=== PATIENT | male | born 1965 | race Caucasian/White ===

== ENCOUNTER 2017-11-06 09:02 | Emergency (ER) | payer MEDICAID ==
[2017-11-06] MEDS: KETOROLAC 30 MG/ML VIAL IM ONE (09:35)
[2017-11-06] MEDS: ORPHENADRINE CITRATE 60MG/2ML VIAL IM ONE (09:35)
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
--- NOTE | 2017-11-07 14:33 | RADIOLOGY REPORT ---
EXAM: LUMBAR SPINE HISTORY: BACK PAIN. TECHNIQUE: Frontal and lateral views of the lumbar spine were obtained. Comparison: None. FINDINGS: Five lumbar type vertebral bodies. There is an age indeterminate compression fracture deformity of L1. Approximately 20-30% loss of height anteriorly. End plate degenerative changes throughout the lumbar spine. Height and alignment is otherwise preserved. The sacroiliac joints are preserved. IMPRESSION: AGE INDETERMINATE COMPRESSION FRACTURE DEFORMITY OF L1. MULTILEVEL DEGENERATIVE CHANGE. JOB NUMBER: [id number] MTDD
== END 2017-11-06 10:26 | disposition home or self-care (01) ==
LOC: ER 09:02
DX: S30.0XXA Contusion of lower back and pelvis, initial encounter (principal); W01.0XXA Fall on same level from slipping, tripping and stumbling without subsequent striking against object, initial encounter; F17.210 Nicotine dependence, cigarettes, uncomplicated; Y92.009 Unspecified place in unspecified non-institutional (private) residence as the place of occurrence of the external cause
CPT/HCPCS: 72100; 96372; 99283; 99284; J1885; J2360